=== PATIENT | male | born 1995 | race African-American/Black ===

== ENCOUNTER 2017-12-10 17:18 | Emergency (ER) | payer BC ==
[~2017-12-10] VITALS: Ht 175.3 cm; Wt 81.7 kg
[~2017-12-10 17:18] MED LIST: NOHOMEMEDICATIONS
[2017-12-10 18:04] LABS: URINE BILIRUBIN NEGATIVE (Negative); URINE BLOOD NEGATIVE (Negative); URINE CLARITY CLEAR; URINE COLOR YELLOW; URINE GLUCOSE-RANDOM NEGATIVE (Negative); URINE KETONES TRACE (Negative); URINE LEUKOCYTES-REFLEX NEGATIVE (Negative); URINE NITRITE-REFLEX NEGATIVE (Negative); URINE PROTEIN NEGATIVE (Negative); URINE SPECIFIC GRAVITY >= 1.030 (1.005-1.030); URINE UROBILINOGEN 0.2 E.U./dl (0.2-1.0)
[2017-12-10] MEDS ORDERED: IBUPROFEN 800800 MG PO (19:16)
[2017-12-10 19:29] VITALS: BP 141/89
== END 2017-12-10 19:29 | disposition home or self-care (01) ==
LOC: M.ERS 17:18
PROVIDERS: Nurse Practitioner Family
DX: N45.2 Orchitis (principal); F17.210 Nicotine dependence, cigarettes, uncomplicated; J45.909 Unspecified asthma, uncomplicated

== ENCOUNTER 2018-01-28 12:41 | Emergency (ER) | payer BC ==
[~2018-01-28] VITALS: Ht 175.3 cm; Wt 77.1 kg
[~2018-01-28 12:41] MED LIST changes: +IBUPROFEN 800800 MG PO
[2018-01-28 12:49] VITALS: BP 149/92
[2018-01-28] MEDS ORDERED: HYDROCORTISONE30 G9 RECTAL (13:12)
[2018-01-28] MEDS ORDERED: COLACE 100 MG100 MG PO (13:12)
== END 2018-01-28 13:21 | disposition home or self-care (01) ==
LOC: M.ERS 12:41
DX: K64.4 Residual hemorrhoidal skin tags (principal); J45.909 Unspecified asthma, uncomplicated; F17.210 Nicotine dependence, cigarettes, uncomplicated

== ENCOUNTER 2018-11-01 14:44 | Emergency (ER) | payer BC ==
[~2018-11-01] VITALS: Ht 175.3 cm; Wt 74.8 kg
[~2018-11-01 14:44] MED LIST changes: +COLACE 100 MG100 MG PO; +HYDROCORTISONE30 G9 RECTAL
[2018-11-01 15:49] VITALS: BP 136/71
== END 2018-11-01 15:49 | disposition home or self-care (01) ==
LOC: M.ERS 14:44
DX: Z20.2 Contact with and (suspected) exposure to infections with a predominantly sexual mode of transmission (principal); F17.210 Nicotine dependence, cigarettes, uncomplicated; J45.909 Unspecified asthma, uncomplicated